=== PATIENT | male | born 1980 | race Caucasian/White ===

== ENCOUNTER 2021-08-21 12:23 | Emergency (ER) | payer OTHER, SELFPAY ==
[2021-08-21 12:36] VITALS: BP 157/103; PULSE 58; RESP 16; TEMP 36.7; O2SAT 98; BMI 24.3
[2021-08-21 12:50] VITALS: BP 147/99; PULSE 61; RESP 16; O2SAT 99
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
[2021-08-21] MEDS: HYDROcodone-acetaminophen 5-325 mg Tablet 1 TAB PO (13:35)
[2021-08-21 13:38] VITALS: BP 142/88; PULSE 67; RESP 20; O2SAT 99
--- NOTE | 2021-08-21 13:40 | PC.NURSE ---
UNIVERSAL ARM SLING APPLIED TO PATIENT RIGHT SHOULDER.
[2021-08-21 13:49] VITALS: BP 142/88; PULSE 67; RESP 20; O2SAT 99
== END 2021-08-21 13:49 | disposition home or self-care (01) ==
PROVIDERS: Emergency Provider Student in an Organized Health Care Education/Training Program
DX: S43.101A Unspecified dislocation of right acromioclavicular joint, initial encounter (principal); X58.XXXA Exposure to other specified factors, initial encounter
CPT/HCPCS: 73000; 73030; 99283

== ENCOUNTER → 2021-08-27 09:23 | Outpatient (BNVA) | payer SELFPAY | PROVIDERS: Visit Provider Orthopaedic Surgery | DX: Z20.822 Contact with and (suspected) exposure to COVID-19 (principal); S43.109A Unspecified dislocation of unspecified acromioclavicular joint, initial encounter; X58.XXXA Exposure to other specified factors, initial encounter | CPT/HCPCS: 87635 ==

== ENCOUNTER 2021-09-02 05:53 | Day surgery (SDC) | payer OTHER, SELFPAY ==
[2021-09-01 15:54] VITALS: BMI 24.3
[2021-09-02 06:09] VITALS: BP 123/81; PULSE 65; RESP 18; TEMP 36.8; O2SAT 98
[2021-09-02] MEDS: acetaminophen 500 mg Tablet 1000 MG PO (06:24)
[2021-09-02] MEDS: sodium chloride 0.9% 1,000 ML 30 ML IV (06:25)
--- NOTE | 2021-09-02 06:52 | ANES.PREANE2 ---
Pre-Anesthetic Assessment Height/Weight: Height 1.73 m Weight 72.575 kg Temp Pulse Resp BP Pulse Ox 98.2 F 65 18 123/81 98 09/02/21 06:09 09/02/21 06:09 09/02/21 06:09 09/02/21 06:09 09/02/21 06:09 Preop Diagnosis: Right acromioclavicular joint separation Operation Date: 09/02/21 07:00 Proposed Procedures p AC Separation Repair (Shoulder) [id number]/s43.109a(Right) - Harlan Salmeron MD s Distal Clavicle Resection(Right) - Harlan Salmeron MD Familial anesthetic complications: None Was Beta Kurt taken within 24 hours: N/A Was Clonidine taken within 24 hours: N/A Last intake: Intake Last Liquid Date 09/01/21 Last Liquid Time 22:15 Last Solid Date 09/01/21 Last Solid Time 19:00 Social No alcohol and No tobacco Exam alert, oriented x 3, clear to auscultation bilaterally and regular rate & rhythm Airway Mallampati: Class II Dentition: other (very poor dentition my teeth are real bad ) Anesthetic Plan ASA status: 1 Anesthesia: General and Regional (specify below) Risk of > 500 ml blood loss (7ml/kg in children): No Medications/Allergies Home Medications Medication Instructions Recorded Confirmed Last Taken Type hydrocodone 5 mg-acetaminophen 325 1 tab PO Q8H PRN #10 tab 08/21/21 09/01/21 Unknown Rx mg tablet Allergies Allergy/AdvReac Type Severity Reaction Status Date / Time No Known Allergies Allergy Verified 09/01/21 15:52 Current Medications Generic Name Dose Route Start Last Admin Trade Name Freq PRN Reason Stop Dose Admin Sodium Chloride 1,000 mls @ 30 mls/hr 09/02/21 06:15 09/02/21 06:25 Sodium Chloride 0.9% IV 09/03/21 06:14 30 mls/hr .Q24H GOKUL Administration PFSH Anesthesia Family History (Updated 08/24/21 @ 14:27 by Harlan Salmeron MD) Other Acromioclavicular joint separation, type 4 Social History Smoking and tobacco status: never smoked Data Anesthesia Cardiac Studies: No Data to Display
--- NOTE | 2021-09-02 07:02 | W.PM.OPSUD ---
Surgery/Procedure H&P Update DATE OF PROCEDURE: September 02, 2021 DATE H&P PERFORMED: 08/24/21 H&P UPDATE INFORMATION: I have reviewed H&P completed within last 30 days PREOP DIAGNOSIS: Right acromioclavicular joint separation PLANNED PROCEDURE: Operation Date: 09/02/21 07:00 Proposed Procedures p AC Separation Repair (Shoulder) [id number]/s43.109a(Right) - Harlan Salmeron MD s Distal Clavicle Resection(Right) - Harlan Salmeron MD
--- NOTE | 2021-09-02 07:21 | ANES.PROC ---
Anesthesia Procedures Procedure/Date: 09/02/21 Nerve Block ^: Nerve Block 1: Main Anesthesia: general anesthesia Time Out Performed: Yes Consent: requested by attending/covering physician, from patient, risks and benefits reviewed and patient agrees to proceed Nerve block location: interscalene (R) Anesthesia monitors applied: pulse oximetry, EKG, BP cuff and oxygen Nerve block position: supine Anesthetic Used: ropivicaine 0.5% (20) and with decadron (4 mg) Ultrasound used to: recognize landmarks and visualize and ID interscalene groove Nerve Stimulator Used?: No Interscalene/Femoral BLK: 2 stimuplex 22 g needle used for position and inplane approach, visualize local anesthetic spread and no vascular puncture identified Injection: neg aspiration of heme Patient Tolerated Procedure: well Complications: none
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
[2021-09-02 08:45] VITALS: BP 130/77; PULSE 65; RESP 18; O2SAT 100
[2021-09-02 08:50] VITALS: BP 118/64; PULSE 61; RESP 18; O2SAT 100
[2021-09-02 08:55] VITALS: BP 138/70; PULSE 74; RESP 18; O2SAT 100
[2021-09-02 09:08] VITALS: BP 127/80; PULSE 76; RESP 18; TEMP 36.2; O2SAT 99
== END 2021-09-02 09:37 | disposition home or self-care (01) ==
PROVIDERS: PCP Registered Nurse; Visit Provider Orthopaedic Surgery
PROC: (CPT 23550; principal; 2021-09-02 07:00)
PROC: (CPT 23120; 2021-09-02 07:00)
DX: S43.101A Unspecified dislocation of right acromioclavicular joint, initial encounter (principal); V48.7XXA Person on outside of car injured in noncollision transport accident in traffic accident, initial encounter
CPT/HCPCS: 23550; 64415; 76942; C1713; J0690; J1100; J1580; J2405; J2704; J2710; J2795; J3010; J3490; J7030

== ENCOUNTER 2021-09-11 08:30 | Emergency (ER) | payer OTHER, SELFPAY ==
[2021-09-11 08:40] VITALS: BP 137/92; PULSE 79; RESP 18; TEMP 36.8; O2SAT 98; BMI 246.3
--- NOTE | 2021-09-11 09:01 | XRR_ITS ---
PROCEDURE INFORMATION: Exam: XR Right Shoulder Exam date and time: 09/11/2021 9:33 AM Age: 41 years old Clinical indication: Injury or trauma; Fall; Blunt trauma (contusions or hematomas); Shoulder; Right; Prior surgery; Surgery date: 3-7 days post-operative; Additional info: Trauma; Recent surgery TECHNIQUE: Imaging protocol: XR Right shoulder. Views: 2 or more views. COMPARISON: CR (CHEST, ) 08/21/2021 1:11 PM FINDINGS: Bones/joints: Surgical resection of the distal right clavicle which is cephalad in positioning relative to the acromion. No acute osseous pathology in the right shoulder. Anatomic alignment of the glenohumeral joint. Soft tissues: Unremarkable soft tissues. XR/XR shoulder RT min 2V* [id number] IMPRESSION: Surgical resection of the distal right clavicle which is cephalad in positioning relative to the acromion.
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
[2021-09-11 09:05] VITALS: BP 137/92; PULSE 79; RESP 18; O2SAT 98
[2021-09-11 10:53] VITALS: BP 137/92; PULSE 75; O2SAT 94
== END 2021-09-11 10:53 | disposition home or self-care (01) ==
PROVIDERS: Emergency Provider Physician Assistant; PCP Registered Nurse
DX: S49.91XA Unspecified injury of right shoulder and upper arm, initial encounter (principal); W18.30XA Fall on same level, unspecified, initial encounter; Y92.009 Unspecified place in unspecified non-institutional (private) residence as the place of occurrence of the external cause; Z98.890 Other specified postprocedural states
CPT/HCPCS: 73030; 99282

== ENCOUNTER 2021-11-16 06:49 | Outpatient (CLI) | payer OTHER, SELFPAY ==
--- NOTE | 2021-11-16 07:15 | MR_ITS ---
WS: [id number] MRI RIGHT SHOULDER HISTORY: Postop pain and stiffness. COMPARISON: 09/11/2021 TECHNIQUE: Multiplanar sequences of the shoulder joint are submitted. Status post resection of the distal clavicle. There is artifact in the soft tissues surrounding the d istal clavicle. The distal clavicle is elevated as seen on a prior radiograph also. Significant disto rtion of the soft tissues with micrometallic artifact. No significant subacromial encroachment upon t he rotator cuff. There is no os acromion. Biceps tendon remains in the bicipital groove. No muscle atrophy or edema. No rotator cuff tear is identified. No retraction of the tendons. There i s mild narrowing of the glenohumeral joint. Humeral head is normally positioned at the glenoid. Bicep s tendon remains in normal position. Seen only on very limited images is abnormal signal through the inferior labrum which is suspicious for a labral tear. MR/MR shoulder RT wo con* [id number] IMPRESSION: 1. Status post resection of the distal RIGHT clavicle. 2. Continued superior dislocation and elevation of the distal clavicle with re spect to the acromion. There is a significant amount of micrometallic artifact at the surgical site obscuring bone and soft tissue detail. 3. Although only seen on a few images there is abnormal signal through the inf erior labrum suspicious but indeterminate for tear.
== END 2021-11-16 06:50 | disposition home or self-care (01) ==
LOC: RAD 06:51
PROVIDERS: PCP Registered Nurse; Visit Provider Nurse Practitioner Family
DX: Z98.890 Other specified postprocedural states (principal)
CPT/HCPCS: 73221